=== PATIENT | female | born 1985 ===

== ENCOUNTER 2016-12-20 10:09 | Emergency (ER) | payer OTHER ==
[2016-12-20 10:14] VITALS: BP 117/68; PULSE 94; TEMP 98; O2SAT 100; BMI 27.4
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
== END 2016-12-20 18:04 | disposition home or self-care (01) ==
LOC: H.ER 10:09
DX: M54.9 Dorsalgia, unspecified (principal); S09.90XA Unspecified injury of head, initial encounter; V43.62XA Car passenger injured in collision with other type car in traffic accident, initial encounter; Y92.410 Unspecified street and highway as the place of occurrence of the external cause; M48.02 Spinal stenosis, cervical region; M50.322 Other cervical disc degeneration at C5-C6 level

== ENCOUNTER 2017-08-29 21:09 | Emergency (ER) | payer OTHER ==
[2017-08-29 21:09] VITALS: BMI 27.4
[2017-08-29 21:14] VITALS: RESP 16; O2SAT 100
--- NOTE | 2017-08-29 21:43 | ED PDOC ---
HPI: Abdomen Time Seen by Provider: 08/29/17 21:18 Chief Complaint (Nursing): Abdominal Pain Chief Complaint (Provider): abdominal pain History Per: Patient History/Exam Limitations: no limitations Onset/Duration Of Symptoms: Days (1) Current Symptoms Are (Timing): Still Present Location Of Pain/Discomfort: RUQ, RLQ, Other (right flank) Quality Of Discomfort: "Pain" Associated Symptoms: Back Pain Additional Complaint(s): 32 y/o female presents for evaluation of right-sided abdominal pain x 1 day. Patient states pain started in right lower abdomen/groin area, and has since spread to right lower back. Denies fever, nausea/vomiting, chest pain, shortness of braeth, palpitations, urinary symptoms, vaginal bleeding/ discharge. No medications taken for relief thus far. Past Medical History Reviewed: Historical Data, Nursing Documentation, Vital Signs Vital Signs: Last Vital Signs Temp 98.3 F 08/29/17 21:11 Pulse 66 08/29/17 21:11 Resp 16 08/29/17 21:11 BP 115/68 08/29/17 21:11 Pulse Ox 100 08/30/17 02:29 - Medical History PMH: No Chronic Diseases - Surgical History Surgical History: Cholecystectomy, - Family History Family History: States: No Known Family Hx - Living Arrangements Living Arrangements: With Family - Home Medications Home Medications: Ambulatory Orders Medication Instructions Recorded Ibuprofen [Motrin] 600 mg PO Q6H PRN #20 tab 12/20/16 Ibuprofen [Motrin Tab] 1 tab PO Q6 PRN #20 tab 08/30/17 Tamsulosin [Flomax] 0.4 mg PO DAILY #10 cap 08/30/17 traMADol [Ultram] 50 mg PO Q6 PRN #10 tab 08/30/17 - Allergies Allergies/Adverse Reactions: Allergies Allergy/AdvReac Type Severity Reaction Status Date / Time No Known Allergies Allergy Verified 08/29/17 21:11 Review of Systems ROS Statement: Except As Marked, All Systems Reviewed And Found Negative Gastrointestinal: Positive for: Abdominal Pain Musculoskeletal: Positive for: Back Pain Physical Exam - Reviewed Nursing Documentation Reviewed: Yes Vital Signs Reviewed: Yes - Physical Exam Appears: Positive for: Well, Non-toxic, No Acute Distress Head Exam: Positive for: ATRAUMATIC, NORMAL INSPECTION, NORMOCEPHALIC Skin: Positive for: Normal Color Eye Exam: Positive for: Normal appearance ENT: Positive for: Normal ENT Inspection Cardiovascular/Chest: Positive for: Regular Rate, Rhythm Respiratory: Positive for: Normal Breath Sounds Gastrointestinal/Abdominal: Positive for: Bowel Sounds, Soft, Tenderness (rlq) Back: Positive for: Normal Inspection, R CVA Tenderness Extremity: Positive for: Normal ROM Neurologic/Psych: Positive for: Alert, Oriented - Laboratory Results Result Diagrams: 08/29/17 22:40 08/29/17 22:40 - ECG O2 Sat by Pulse Oximetry: 100 - Progress ED Course And Treament: labs, TV u/s, IV toradol EXAM: US Pelvis, Transvaginal CLINICAL HISTORY: 32 years old, female; Pain; Pelvic pain; Additional info: Right pelvic pain TECHNIQUE: Real-time transvaginal pelvic ultrasound (complete) with image documentation. Transvaginal imaging was used for better evaluation of the endometrium and adnexa. COMPARISON: No relevant prior studies available. FINDINGS: Uterus/cervix: Unremarkable measuring 10.2 x 4.9 x 4.4 cm. Normal endometrial stripe thickness measuring 1.1 cm. No myometrial mass. Right ovary: Unremarkable measuring 3.5 x 1.9 x 2.6 cm. No mass. Normal blood flow. Left ovary: The left ovary measures 3.6 x 2.8 x 3.8 cm. There is a cyst in the left ovary measuring 3.0 x 2.6 x 2.9 cm. No mass. Normal blood flow. Free fluid: No free fluid. Bladder: Empty bladder which cannot be evaluated with this probe. IMPRESSION: Left ovarian cyst. This cyst is almost certainly benign. No follow-up is necessary. Will order CT for further eval EXAM: CT Abdomen and Pelvis With Intravenous Contrast CLINICAL HISTORY: 32 years old, female; Pain; Abdominal pain; Localized; Right; Prior surgery; Surgery date: 6+ months; Surgery type: Gb removed. C section x2; Additional info: Right sided abdominal pain TECHNIQUE: Axial computed tomography images of the abdomen and pelvis with intravenous contrast. All CT scans at this facility use one or more dose reduction techniques, viz.: automated exposure control; ma/kV adjustment per patient size (including targeted exams where dose is matched to indication; i.e. head); or iterative reconstruction technique. Coronal and sagittal reformatted images were created and reviewed. CONTRAST: 90 mL of [id number] administered intravenously. COMPARISON: No relevant prior studies available. FINDINGS: Lung bases: Unremarkable. No mass. No consolidation. ABDOMEN: Liver: Unremarkable. No mass. Gallbladder and bile ducts: There has been a cholecystectomy. No ductal dilation. Pancreas: Unremarkable. No mass. No ductal dilation. Spleen: Unremarkable. No splenomegaly. Adrenals: Unremarkable. No mass. Kidneys and ureters: There is right hydronephrosis and hydroureter. No evidence of distal ureteral stone. Stomach and bowel: Unremarkable. No obstruction. No mucosal thickening. PELVIS: Appendix: A normal appendix is identified. Bladder: Unremarkable. No mass. Reproductive: There is a 3 cm cyst in the left ovary. 1.7 cm rim-enhancing low- density structure in the right pelvis most likely ovarian follicle or involuting cyst.ABDOMEN and PELVIS: Intraperitoneal space: Trace physiologic pelvic cul-de-sac free fluid. No free air. Bones/joints: No acute fracture. No dislocation. Soft tissues: Unremarkable. Vasculature: Unremarkable. No abdominal aortic aneurysm. Lymph nodes: Unremarkable. No enlarged lymph nodes. IMPRESSION: Mild right hydroureteronephrosis. No distal ureteral stone. Findings could be secondary to recently passed stone or non-opaque ureteral stone. Clinical correlation recommended. No evidence of acute appendicitis. Probable involuting right ovarian cyst or follicle. 3 cm left ovarian cyst. Cholecystectomy. On re-eval, patient states pain improved, still mildly present Patient educated on findings, discharged with rx flomax (dose given in ED), ibuprofen, tramadol Strainer given with instructions to check urine for possibly non-opaque stone Advised follow up [facility]/urology Fluids Return precautions given Disposition - Clinical Impression Clinical Impression: Renal colic on right side, Kidney stone - Patient ED Disposition Is Patient to be Admitted: No Counseled Patient/Family Regarding: Studies Performed, Diagnosis, Need For Followup, Rx Given - Disposition Referrals: [facility] [Outside] Lj Scott Jr., MD [Staff Provider] - Disposition: Routine/Home Disposition Time: 02:24 Condition: IMPROVED Prescriptions: Ibuprofen [Motrin Tab] 1 tab PO Q6 PRN #20 tab PRN Reason: Pain, Moderate (4-7) Tamsulosin [Flomax] 0.4 mg PO DAILY #10 cap traMADol [Ultram] 50 mg PO Q6 PRN #10 tab PRN Reason: Pain, Severe (8-10) Instructions: Kidney Stones in Adults, Renal Colic Forms: [facility] (Cuban) Print Language: RWANDAN
[2017-08-29] MEDS ORDERED: Iohexol 240 (50 ml) PO ONE (22:32)
[2017-08-29 22:50] LABS: BASO % 0.4 % (0.0-2.0); EOS # 0.1 K/uL (0.0-0.7); EOS % 0.6 % (0.0-4.0); HEMOGLOBIN 13.3 g/dL (12.0-16.0); LYMPH # 1.7 K/uL (1.0-4.3); LYMPH % 16.8 % (20.0-40.0); MEAN CELL VOLUME 91.1 fl (81.0-99.0); MEAN CORPUSCULAR HEMOGLOBIN 31.4 pg (27.0-31.0); MEAN CORPUSCULAR HGB CONC 34.4 g/dL (33.0-37.0); MEAN PLATELET VOLUME 8.1 fl (7.2-11.7); MONO # 0.3 K/uL (0.0-0.8); MONO % 3.5 % (0.0-10.0); NEUT # 7.9 K/uL (1.8-7.0); NEUT % 78.7 % (50.0-75.0); NRBC % 0.1 % (0.0-0.0); RBC 4.23 Mil/uL (3.80-5.20); RED CELL DISTRIBUTION WIDTH 13.4 % (11.5-14.5); WHITE BLOOD COUNT 10.1 K/uL (4.8-10.8)
[2017-08-29 22:57] LABS: ALB/GLOB RATIO 1.2 (1.0-2.1); ALBUMIN 4.4 g/dL (3.5-5.0); ALT/SGPT 25 U/L (9-52); AST/SGOT 24 U/L (14-36); BLOOD UREA NITROGEN 9 mg/dl (7-17); CALCIUM 9.3 mg/dL (8.4-10.2); GFR AFRICAN-AMERICAN > 60; GFR NON-AFRICAN AMERICAN > 60
[2017-08-29 23:19] LABS: SQUAMOUS EPITHIAL 3 /hpf (0-5); URINE BACTERIA RARE (<OCC); URINE BILIRUBIN NEGATIVE (NEGATIVE); URINE BLOOD NEGATIVE (NEGATIVE); URINE CLARITY SLIGHTY-CLOUDY (Clear); URINE COLOR YELLOW (YELLOW); URINE GLUCOSE (UA) NEG (Normal); URINE LEUKOCYTE ESTERASE TRACE Leu/uL (Negative); URINE PROTEIN NEGATIVE (NEGATIVE); URINE UROBILINOGEN 0.2-1.0 mg/dL (0.2-1.0)
[2017-08-29] MEDS ORDERED: Iohexol 240 (50 ml) ONE (23:42)
--- NOTE | 2017-08-29 23:43 | US ---
EXAM: US Pelvis, Transvaginal CLINICAL HISTORY: 32 years old, female; Pain; Pelvic pain; Additional info: Right pelvic pain TECHNIQUE: Real-time transvaginal pelvic ultrasound (complete) with image documentation. Transvaginal imaging was used for better evaluation of the endometrium and adnexa. COMPARISON: No relevant prior studies available. FINDINGS: Uterus/cervix: Unremarkable measuring 10.2 x 4.9 x 4.4 cm. Normal endometrial stripe thickness measuring 1.1 cm. No myometrial mass. Right ovary: Unremarkable measuring 3.5 x 1.9 x 2.6 cm. No mass. Normal blood flow. Left ovary: The left ovary measures 3.6 x 2.8 x 3.8 cm. There is a cyst in the left ovary measuring 3.0 x 2.6 x 2.9 cm. No mass. Normal blood flow. Free fluid: No free fluid. Bladder: Empty bladder which cannot be evaluated with this probe. IMPRESSION: Left ovarian cyst. This cyst is almost certainly benign. No follow-up is necessary. No evidence of ovarian torsion.
[2017-08-30] MEDS ORDERED: Iohexol 300 100 ML IJ ONE (01:34)
[2017-08-30] MEDS ORDERED: Sodium Chloride 0.9% 100 ML ONE (01:35)
--- NOTE | 2017-08-30 02:12 | CT ---
EXAM: CT Abdomen and Pelvis With Intravenous Contrast CLINICAL HISTORY: 32 years old, female; Pain; Abdominal pain; Localized; Right; Prior surgery; Surgery date: 6+ months; Surgery type: Gb removed. C section x2; Additional info: Right sided abdominal pain TECHNIQUE: Axial computed tomography images of the abdomen and pelvis with intravenous contrast. All CT scans at this facility use one or more dose reduction techniques, viz.: automated exposure control; ma/kV adjustment per patient size (including targeted exams where dose is matched to indication; i.e. head); or iterative reconstruction technique. Coronal and sagittal reformatted images were created and reviewed. CONTRAST: 90 mL of [id number] administered intravenously. COMPARISON: No relevant prior studies available. FINDINGS: Lung bases: Unremarkable. No mass. No consolidation. ABDOMEN: Liver: Unremarkable. No mass. Gallbladder and bile ducts: There has been a cholecystectomy. No ductal dilation. Pancreas: Unremarkable. No mass. No ductal dilation. Spleen: Unremarkable. No splenomegaly. Adrenals: Unremarkable. No mass. Kidneys and ureters: There is right hydronephrosis and hydroureter. No evidence of distal ureteral stone. Stomach and bowel: Unremarkable. No obstruction. No mucosal thickening. PELVIS: Appendix: A normal appendix is identified. Bladder: Unremarkable. No mass. Reproductive: There is a 3 cm cyst in the left ovary. 1.7 cm rim-enhancing low-density structure in the right pelvis most likely ovarian follicle or involuting cyst. ABDOMEN and PELVIS: Intraperitoneal space: Trace physiologic pelvic cul-de-sac free fluid. No free air. Bones/joints: No acute fracture. No dislocation. Soft tissues: Unremarkable. Vasculature: Unremarkable. No abdominal aortic aneurysm. Lymph nodes: Unremarkable. No enlarged lymph nodes. IMPRESSION: Mild right hydroureteronephrosis. No distal ureteral stone. Findings could be secondary to recently passed stone or non-opaque ureteral stone. Clinical correlation recommended. No evidence of acute appendicitis. Probable involuting right ovarian cyst or follicle. 3 cm left ovarian cyst. Cholecystectomy.
[2017-08-30 03:05] VITALS: BP 119/68; PULSE 79; TEMP 98.2
== END 2017-08-30 02:54 | disposition home or self-care (01) ==
LOC: H.ER 21:09
DX: N23 Unspecified renal colic (principal); N20.0 Calculus of kidney; Z87.442 Personal history of urinary calculi; Z90.49 Acquired absence of other specified parts of digestive tract
CPT/HCPCS: 74177; 76830; 80053; 81003; 81025; 85025; 87086; 99284; J1885; Q9966; Q9967